=== PATIENT | female | born 1980 | race Caucasian/White ===

== ENCOUNTER → 2020-09-25 | Outpatient (CLI) | payer OTHER ==
[~2020-09-25] MED LIST: ADVIL200 MG PO; CIPRO 500MG TA500 MG PO; NAPROSYN500 MG PO; NORCO 325 MG-51 TAB PO; ZOFRAN 4MG T4 MG/TAB PO
== END ==
LOC: COL.RAD 16:17
DX: N13.30 Unspecified hydronephrosis (principal); N20.2 Calculus of kidney with calculus of ureter

== ENCOUNTER → 2021-08-02 | Outpatient (RCR) | payer OTHER | LOC: PT.GENESIS | DX: R42 Dizziness and giddiness (principal) ==

== ENCOUNTER 2021-08-30 11:31 | Observation (INO) | payer OTHER ==
[~2021-08-30] VITALS: Ht 157.5 cm; Wt 81.8 kg
[2021-08-30 12:29] LABS: HEMATOCRIT 40.9 % (37.0-47.0); HEMOGLOBIN 13.6 g/dl (12.5-16.0); MEAN CELL VOLUME 87 fl (80.0-100.0); MEAN CORPUSCULAR HEMOGLOBIN 29 pg (27-31); MEAN CORPUSCULAR HGB CONC 33 g/dl (33.0-37.0); MEAN PLATELET VOLUME 9.9 fl (7.4-10.4); PLATELET COUNT 329 K/mm3 (130-400); RED BLOOD COUNT 4.69 M/mm3 (4.10-5.30); REDCELL DISTRIBUTION WIDTH-CV 13.5 % (11.5-14.5)
[2021-08-30 12:39] LABS: ALBUMIN 4.5 gm/dL (3.5-5.0); BILIRUBIN,TOTAL 0.5 mg/dL (0.2-1.2); CALCIUM 9.2 mg/dL (8.4-10.2); CREATININE, serum 1.26 mg/dL (0.57-1.11); POTASSIUM 3.5 mmol/L (3.5-4.5); TOTAL PROTEIN 7.8 gm/dL (6.2-8.1)
[2021-08-30 12:47] LABS: COLLECTION METHOD CLEAN CATCH
[2021-08-30 13:21] LABS: MUCOUS Present (NOT PRESENT); PH 5 (5-8); URINE APPEARANCE Hazy (CLEAR/HAZY); URINE BACTERIA None Seen /hpf (NONE SEEN); URINE BILIRUBIN Negative (NEGATIVE); URINE BLOOD 3+ (NEGATIVE); URINE COLOR Yellow (YELLOW); URINE GLUCOSE Negative (NEGATIVE); URINE KETONE Trace (NEGATIVE); URINE LEUKOCYTE ESTERASE Trace (NEGATIVE); URINE NITRATE Negative (NEGATIVE); URINE PROTEIN(semi-quant) 1+ (NEGATIVE); URINE RBC >50 /hpf (0-2); URINE UROBILINOGEN Negative (NEGATIVE)
[2021-08-30 13:23] LABS: BAND 3 % (0-10); BASOPHIL 1 % (0-2); EOSINOPHIL 1 % (0-4); LYMPHOCYTE 11 % (20.0-51.0); NEUTROPHILS 84 % (42.0-75.2); PLATELET ESTIMATE NORMAL (NORMAL)
[2021-08-30] MEDS ORDERED: NORCO 325 MG-51 TAB PO (18:21)
[2021-08-30] MEDS ORDERED: PYRIDIUM 100MG100 MG PO (18:21)
[2021-08-30 19:00] VITALS: BP 139/73; PULSE 94; TEMP 98.2
--- NOTE | 2021-08-30 19:00 | NUR ---
Arrived to room 324 via bed from PACU. Oriented to room/policy. Assessment complete. Denies nausea/shortness of breath. Rating pain 5/10 with urination. Noted to heave reddish colored urine. Oxycodone given per dr order. Plan of care discussed for discharge after criteria met. Discussed PO intake/voiding/tolerating diet. Verbalizes understanding. Diet tray provided. WIll monitor.
[2021-08-30 19:15] VITALS: BP 132/76; PULSE 94
[2021-08-30 19:30] VITALS: BP 123/77; PULSE 86
[2021-08-30 19:45] VITALS: BP 121/77; PULSE 89; TEMP 98.2
[2021-08-30 20:15] VITALS: BP 116/74; PULSE 91
--- NOTE | 2021-08-30 20:35 | NUR ---
Discharge instructions given.
[2021-08-30 20:45] VITALS: BP 114/72; PULSE 88; TEMP 98.2
== END 2021-08-30 22:08 | disposition home or self-care (01) ==
LOC: COL.ER 11:31 → SURG 14:35
PROVIDERS: Nurse Practitioner Primary Care; ADMIT Urology
DX: N13.2 Hydronephrosis with renal and ureteral calculous obstruction (principal)
CPT/HCPCS: C1769; C1894; C2617; G0378; J0690; J1100; J1885; J2270; J2405; J2704; J3010; J7030; Q9967

== ENCOUNTER → 2021-10-26 | Outpatient (CLI) | payer OTHER ==
[~2021-10-26] MED LIST changes: +PYRIDIUM 100MG100 MG PO
== END ==
LOC: COL.RAD 10:05
DX: N20.2 Calculus of kidney with calculus of ureter (principal)
CPT/HCPCS: Q9967

== ENCOUNTER → 2022-09-30 | Outpatient (CLI) | payer OTHER | LOC: MC.RAD 07:56 | DX: R92.8 Other abnormal and inconclusive findings on diagnostic imaging of breast (principal) ==

== ENCOUNTER → 2022-10-05 | Outpatient (CLI) | payer OTHER | LOC: MC.RAD 06:57 | DX: N63.11 Unspecified lump in the right breast, upper outer quadrant (principal) ==

== ENCOUNTER → 2023-09-27 | Outpatient (CLI) | payer OTHER | LOC: MC.RAD 10:20 | DX: Z12.31 Encounter for screening mammogram for malignant neoplasm of breast (principal) ==